=== PATIENT | female | born 1975 | race Caucasian/White ===

== ENCOUNTER 2016-07-21 10:05 | Emergency (ER) | payer OTHER ==
--- NOTE | 2016-07-21 12:01 | ED ORDER SUMMARY ---
..... Patient: ALE REDMOND OrderSheet [facility] VisitID: [id number] [address] [place] [address] 40y, F Registration Date/Time: 07/21/2016 ORDER SHEET Weight: 80.7 kg (stated) Allergies: Gabapentin, Vicodin GENERAL ORDERS: MEDICATION ORDERS: Amoxicillin PO 500 mg (NOW) (11:59 07/21/2016 Tiffany BURDICK) (12:13 Tiffanie Felix.Ebenezer) IV FLUIDS: ORDER SHEET NOTES: [Electronically signed by Dimas [place] R.N. (13:17 07/21/2016)] [Electronically signed by Barby Iraheta MD (19:25 07/23/2016)] [Electronically locked/signed by Dimas [place] R.N. (13:17 07/21/2016)]
--- NOTE | 2016-07-21 12:01 | ED CLINICAL REPORT ---
Clinical Report - Physicians/Mid Levels [facility] [address] [place] [address] 07/21/2016 10:07 Patient: ALE REDMOND Time Seen: 10:32. Arrived- By private vehicle. Historian- patient. HISTORY OF PRESENT ILLNESS Chief Complaint: DENTAL PAIN. This started yesterday and is still present. Pain described as moderate. No sore throat, mouth sores or nasal discharge or congestion. No swollen jaw or face or facial pain. She has had toothache, jaw pain and ear pain. Similar symptoms previously: Recent medical care: Not recently seen/assessed. REVIEW OF SYSTEMS No fever, eye discomfort, cough, difficulty breathing or chest pain. No nausea, diarrhea, abdominal pain, difficulty with urination or headache. No fainting episodes, joint pain, skin rash, enlarged lymph nodes or vomiting. All systems otherwise negative, except as recorded above. PAST HISTORY Problems: Acute Otalgia. Fibromyalgia. Migraine Headache. LNMP - Last Normal Menstrual Period. Dental Pain. Immunizations. Additional Surgeries: Appendectomy. Cholecystectomy. . Shoulder Surgery. Umbilical Hernia Repair. Medications: Zofran Oral, as needed. Amitriptyline HCl Oral 25 mg, at bedtime. Citalopram Hydrobromide Oral (Tablet 20 mg) 1 tablet, daily , last dose yesterday. Ibuprofen Oral 800 mg. Omeprazole Oral 20 mg, daily. Xanax Oral 0.25 mg, as needed, last dose took 2 about 1 week ago (for anxiety ). Allergies: Gabapentin. Vicodin. Definite Moderate(hives). SOCIAL HISTORY Smoker- current status unknown. No alcohol use or drug use. ADDITIONAL NOTES The nursing notes have been reviewed. PHYSICAL EXAM Vital Signs: 07/21/2016 10:21 BP: 126/78. HR: 102. RR: 16. O2 saturation: 100%. Temp: 98.3 F. Have been reviewed. Appearance: Alert. No acute distress. Head: Normal external inspection. Eyes: Pupils equal, round and reactive to light. Conjunctivae and eyelids normal. ENT: Dental decay and tenderness. Ears normal. Nose normal. Pharynx normal. Lips normal. Uvula midline. No trismus. Neck: Normal inspection. No adenopathy. Neck supple. Respiratory: No respiratory distress. Skin: Normal skin color. No rash. Normal skin turgor. Extremities: Extremities exhibit normal ROM. Neuro: (Grossly intact.). LABS, X-RAYS, AND EKG Pulse Oximetry: 07/21/2016 10:21 O2 saturation: 100%. (FIO2 - room air). Interpretation: normal. PROGRESS AND PROCEDURES Course of Care: PT was started on amoxicillin. Patient counseled in person regarding the patient's stable condition, diagnosis and need for follow-up. Concerns were addressed. Old medical records reviewed. Disposition: Discharged. Condition: stable. CLINICAL IMPRESSION Moderate dental pain. INSTRUCTIONS Drink plenty of fluids. Warnings: Further evaluation is necessary. GENERAL WARNINGS: Return or contact your physician immediately if your condition worsens or changes unexpectedly, if not improving as expected, or if other problems arise. Your Current Medications: CONTINUE TAKING THE FOLLOWING MEDICATIONS: Amitriptyline HCl Oral : 25 mg at bedtime. Citalopram Hydrobromide Oral : Tablet 20 mg, 1 tablet daily, Last: yesterday. Ibuprofen Oral : 800 mg. Omeprazole Oral : 20 mg daily. Xanax Oral : 0.25 mg, Last: took 2 about 1 week ago, prn, for anxiety. Zofran Oral : prn. Prescription Medications: Amoxicillin 500 mg tablets: take 1 orally every 8 hours for 10 days. No refills. Percocet 5 mg/325 mg: take 1-2 tablets orally every 4 hours as needed for pain. Dispense ten (10). No refill. Substitution is permissible. (Do not take more than 12 tablets of any Percocet/oxycodone in a 24-hour period.) Follow-up: Follow up with a dentist as scheduled. Understanding of the discharge instructions verbalized by patient. (Electronically signed by Barby Iraheta MD 07/23/2016 19:25)
--- NOTE | 2016-07-21 12:01 | ED NURSING NOTES ---
Clinical Report - Nurses [facility] [address] [place] [address] 07/21/2016 10:07 Patient: ALE REDMOND TRIAGE Triage time 10:22. Acuity: LEVEL 5. Chief Complaint: RIGHT LOWER TOOTHACHE and JAW PAIN. Alert. No acute distress. SEPSIS SCREEN: Sepsis Screen. Negative (no infection suspected/documented). GAL COMA SCORE: Gal Coma Scale: 15- eyes open spontaneously (4); best verbal response- oriented x 4 (5); best motor response- obeys commands (6). --10:26 Hannah Rutherford R.N. 10:21 07/21/16. BP: 126/78. HR: 102. RR: 16. O2 saturation: 100%. Temp: 98.3 F. Pain level now 8/10. --10:26 Hannah Rutherford R.N. Weight: 80.7 kg stated. Height/Length: 60 inches Per Patient. BMI: 34.7. --10:23 Hannah Rutherford R.N. Medications Amitriptyline HCl Oral 25 mg, at bedtime. Citalopram Hydrobromide Oral (Tablet 20 mg) 1 tablet, daily , last dose yesterday. Ibuprofen Oral 800 mg. Omeprazole Oral 20 mg, daily. Xanax Oral 0.25 mg, as needed, last dose took 2 about 1 week ago (for anxiety ). --10:25 Hannah Rutherford R.N. Zofran Oral, as needed. --10:25 Hannah Rutherford R.N. Allergies Gabapentin. Vicodin. Definite Moderate(hives) --10:25 Hannah Rutherford R.N. History Arrived by private vehicle. Historian: patient. Unaccompanied. Primary physician (Foster Boyd). This started yesterday. 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 (last dose around 0500 today.). PAST MEDICAL HX: Immunizations: up-to-date. SOCIAL HX: Smoker- current status unknown. No alcohol use or drug use. No infectious disease exposure. ABUSE ASSESSMENT: Abuse assessment: The patient was asked "Do you feel safe in your home?" and "Has anyone hurt you or threatened to hurt you?". No report of abuse. NUTRITIONAL RISK ASSESSMENT: The nutritional risk assessment revealed no deficiencies. FUNCTIONAL ASSESSMENT: Functional assessment: no impairments noted. LEARNING NEEDS ASSESSMENT: The learning needs assessment revealed no barriers. --10:26 Hannah Rutherford R.N. PROBLEMS: Pharyngitis. Acute Otalgia. Fibromyalgia. Chronic Headache. Headache. Migraine Headache. Contusion. Abdominal Muscle Strain. UTI - Urinary Tract Infection. Abdominal Pain. Dental Caries. --10:26 Hannah Rutherford R.N. ADDITIONAL SURGERIES: Appendectomy. Cholecystectomy. . Shoulder Surgery. Umbilical Hernia Repair. --10:26 Hannah Rutherford R.N. Interventions ID band on patient. Ambulatory. --10:26 Hannah Rutherford R.N. PHYSICAL ASSESSMENT Ambulatory to room. GENERAL / NEURO / PSYCH: Alert. Appears in no acute distress. RESPIRATORY: Respirations not labored. SKIN: Skin is warm and dry. --10:26 Hannah Rutherford R.N. NURSING PROGRESS NOTES Head of bed elevated. Two patient identifiers checked. Call light placed in reach. Side rails up x 2. Bed placed in lowest position. Brakes of bed on. Patient ready for evaluation- chart flagged. --10:26 Hannah Rutherford R.N. 12:13 07/21/2016 Amoxicillin PO 500 mg given. Allergies verified and confirmed 5 rights. --12:13 Dimas [place] R.N. DISPOSITION / DISCHARGE 12:15 07/21/16. Condition at departure: improved. The goals identified in the patient's plan of care were met. No learning barriers present. Discharge instructions provided and reviewed with the patient. Reviewed warnings. Reviewed medication(s). Treatments reviewed. Patient verbalized understanding. Written instructions provided in Latvian. The patient was discharged by the physician. She was discharged home. She left the Emergency Department ambulatory and via private vehicle. Patient driving. FALL RISK ASSESSMENT: Fall risk assessment completed. No fall risk identified. --12:15 Dimas [place] R.N. 12:15 03/29/17. BP: 132/77. HR: 82. RR: 14. O2 saturation: 98% on room air. Temp: 98.2 F (oral). Pain level now: 06/04. --12:15 Dimas [place] R.N. 12:15 07/21/16. Departure time: 12:15. --12:15 Dimas [place] R.N. Locked/Released at 07/21/2016 13:17 by Dimas [place] R.N.
--- NOTE | 2016-07-21 12:01 | ED NURSING NOTES ---
Clinical Report - Nurses [facility] [address] [place] [address] 07/21/2016 10:07 Patient: ALE REDMOND TRIAGE Triage time 10:22. Acuity: LEVEL 5. Chief Complaint: RIGHT LOWER TOOTHACHE and JAW PAIN. Alert. No acute distress. SEPSIS SCREEN: Sepsis Screen. Negative (no infection suspected/documented). GAL COMA SCORE: Gal Coma Scale: 15- eyes open spontaneously (4); best verbal response- oriented x 4 (5); best motor response- obeys commands (6). --10:26 Hannah Rutherford R.N. 10:21 07/21/16. BP: 126/78. HR: 102. RR: 16. O2 saturation: 100%. Temp: 98.3 F. Pain level now 8/10. --10:26 Hannah Rutherford R.N. Weight: 80.7 kg stated. Height/Length: 60 inches Per Patient. BMI: 34.7. --10:23 Hannah Rutherford R.N. Medications Amitriptyline HCl Oral 25 mg, at bedtime. Citalopram Hydrobromide Oral (Tablet 20 mg) 1 tablet, daily , last dose yesterday. Ibuprofen Oral 800 mg. Omeprazole Oral 20 mg, daily. Xanax Oral 0.25 mg, as needed, last dose took 2 about 1 week ago (for anxiety ). --10:25 Hannah Rutherford R.N. Zofran Oral, as needed. --10:25 Hannah Rutherford R.N. Allergies Gabapentin. Vicodin. Definite Moderate(hives) --10:25 Hannah Rutherford R.N. History Arrived by private vehicle. Historian: patient. Unaccompanied. Primary physician (Foster Boyd). This started yesterday. 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 (last dose around 0500 today.). PAST MEDICAL HX: Immunizations: up-to-date. SOCIAL HX: Smoker- current status unknown. No alcohol use or drug use. No infectious disease exposure. ABUSE ASSESSMENT: Abuse assessment: The patient was asked "Do you feel safe in your home?" and "Has anyone hurt you or threatened to hurt you?". No report of abuse. NUTRITIONAL RISK ASSESSMENT: The nutritional risk assessment revealed no deficiencies. FUNCTIONAL ASSESSMENT: Functional assessment: no impairments noted. LEARNING NEEDS ASSESSMENT: The learning needs assessment revealed no barriers. --10:26 Hannah Rutherford R.N. PROBLEMS: Pharyngitis. Acute Otalgia. Fibromyalgia. Chronic Headache. Headache. Migraine Headache. Contusion. Abdominal Muscle Strain. UTI - Urinary Tract Infection. Abdominal Pain. Dental Caries. --10:26 Hannah Rutherford R.N. ADDITIONAL SURGERIES: Appendectomy. Cholecystectomy. . Shoulder Surgery. Umbilical Hernia Repair. --10:26 Hannah Rutherford R.N. Interventions ID band on patient. Ambulatory. --10:26 Hannah Rutherford R.N. PHYSICAL ASSESSMENT Ambulatory to room. GENERAL / NEURO / PSYCH: Alert. Appears in no acute distress. RESPIRATORY: Respirations not labored. SKIN: Skin is warm and dry. --10:26 Hannah Rutherford R.N. NURSING PROGRESS NOTES Head of bed elevated. Two patient identifiers checked. Call light placed in reach. Side rails up x 2. Bed placed in lowest position. Brakes of bed on. Patient ready for evaluation- chart flagged. --10:26 Hannah Rutherford R.N. 12:13 07/21/2016 Amoxicillin PO 500 mg given. Allergies verified and confirmed 5 rights. --12:13 Dimas [place] R.N. DISPOSITION / DISCHARGE 12:15 07/21/16. Condition at departure: improved. The goals identified in the patient's plan of care were met. No learning barriers present. Discharge instructions provided and reviewed with the patient. Reviewed warnings. Reviewed medication(s). Treatments reviewed. Patient verbalized understanding. Written instructions provided in Sami. The patient was discharged by the physician. She was discharged home. She left the Emergency Department ambulatory and via private vehicle. Patient driving. FALL RISK ASSESSMENT: Fall risk assessment completed. No fall risk identified. --12:15 Dimas [place] R.N. 12:15 03/29/17. BP: 132/77. HR: 82. RR: 14. O2 saturation: 98% on room air. Temp: 98.2 F (oral). Pain level now: 06/04. --12:15 Dimas [place] R.N. 12:15 07/21/16. Departure time: 12:15. --12:15 Dimas [place] R.N. Locked/Released at 07/21/2016 13:17 by Dimas [place] R.N.
--- NOTE | 2016-07-21 12:01 | ED ORDER SUMMARY ---
..... Patient: ALE REDMOND OrderSheet [facility] VisitID: [id number] [address] [place] [address] 40y, F Registration Date/Time: 07/21/2016 ORDER SHEET Weight: 80.7 kg (stated) Allergies: Gabapentin, Vicodin GENERAL ORDERS: MEDICATION ORDERS: Amoxicillin PO 500 mg (NOW) (11:59 07/21/2016 Tiffany BURDICK) (12:13 Tiffanie Felix.Ebenezer) IV FLUIDS: ORDER SHEET NOTES: [Electronically signed by Dimas [place] R.N. (13:17 07/21/2016)] [Electronically signed by Barby Iraheta MD (19:25 07/23/2016)] [Electronically locked/signed by Dimas [place] R.N. (13:17 07/21/2016)]
--- NOTE | 2016-07-23 19:25 | ED MAR SUMMARY ---
..... Medication Administration Record [facility] [address] [place] [address] Patient: ALE REDMOND Visit ID: [id number] 40y, F Weight: 80.7 kg Height/Length: 60 in BMI: 34.7 ALLERGIES: Gabapentin, Vicodin Given 12:13 07/21/2016 Dimas [place] R.N. Medication Administered: AMOXICILLIN [PO], Dose: 500 mg PO. Medication Ordered: Amoxicillin PO 500 mg (NOW).
--- NOTE | 2016-07-23 19:25 | ED DISCHARGE INSTRUCTIONS ---
Patient: ALE REDMOND General Instructions [facility] VisitID: [id number] [place] [address] 40y, F Registration Date/Time: 07/21/2016 Moderate dental pain. INSTRUCTIONS Drink plenty of fluids. Warnings: Further evaluation is necessary. GENERAL WARNINGS: Return or contact your physician immediately if your condition worsens or changes unexpectedly, if not improving as expected, or if other problems arise. Your Current Medications: CONTINUE TAKING THE FOLLOWING MEDICATIONS: Amitriptyline HCl Oral : 25 mg at bedtime. Citalopram Hydrobromide Oral : Tablet 20 mg, 1 tablet daily, Last: yesterday. Ibuprofen Oral : 800 mg. Omeprazole Oral : 20 mg daily. Xanax Oral : 0.25 mg, Last: took 2 about 1 week ago, prn, for anxiety. Zofran Oral : prn. Prescription Medications: Amoxicillin 500 mg tablets: take 1 orally every 8 hours for 10 days. No refills. Percocet 5 mg/325 mg: take 1-2 tablets orally every 4 hours as needed for pain. Dispense ten (10). No refill. Substitution is permissible. (Do not take more than 12 tablets of any Percocet/oxycodone in a 24-hour period.) Follow-up: Follow up with a dentist as scheduled. Understanding of the discharge instructions verbalized by patient. ADDITIONAL INFORMATION Dental Pain A crack or cavity in the tooth, which exposes the sensitive inner area of the tooth can cause tooth pain. An infection in the gum or the root of the tooth can cause pain and swelling. The pain is often made worse by drinking hot or cold fluids, or biting on hard foods. Pain may spread from the tooth to the ear or jaw on the same side. Home Care: Avoid hot and cold foods and liquids since your tooth may be sensitive to temperature changes. If your tooth is chipped or cracked, or if there is a large open cavity, apply OIL OF CLOVES (available ylrl-rko-nyponfn in drug stores) directly to the tooth to reduce pain. Some pharmacies carry an tfov-zel-cllmlab "toothache kit." This contains a paste, which can be applied over the exposed tooth to decrease sensitivity. A cold pack on your jaw over the sore area may help reduce pain. You may use acetaminophen (Tylenol) or ibuprofen (Motrin, Advil) to control pain, unless another medicine was prescribed. [ NOTE: If you have chronic liver or kidney disease or ever had a stomach ulcer or GI bleeding, talk with your doctor before using these medicines.] If you have signs of an infection, an antibiotic will be given. Take it as directed. Follow-Up as directed with a dentist. Your pain may go away with the treatment given. However, only a dentist can fully evaluate and treat the cause and prevent the pain from coming back again. TOOTHACHE IS A SIGN OF DISEASE IN YOUR TOOTH AND SHOULD BE EXAMINED AND TREATED BY A DENTIST. Get Prompt Medical Attention if any of the following occur: Your face becomes swollen or red Pain worsens or spreads to the neck Fever over 100.4 F (38.0 C) Unusual drowsiness; headache or stiff neck; weakness or fainting Pus drains from the tooth Difficulty swallowing or breathing You have been given the following additional information: Dental Pain (Electronically signed by Barby Iraheta MD 07/23/2016 19:25)
--- NOTE | 2016-07-23 19:25 | ED MED RECONCILIATION SUMMARY ---
Patient: ALE REDMOND Medication Reconciliation Report [facility] VisitID: [id number] [address] [place] [address] 40y, F Registration Date/Time: 07/21/2016 Weight: 80.7 kg Height/Length: 60 in. BMI: 34.7 ALLERGIES: Gabapentin, Vicodin The patient's Home Medications are listed below: CONTINUE TAKING THE FOLLOWING MEDICATIONS: Amitriptyline HCl Oral 25 mg, at bedtime Citalopram Hydrobromide Oral (20 mg) 1 tablet, daily , last dose: yesterday Ibuprofen Oral 800 mg Omeprazole Oral 20 mg, daily Xanax Oral 0.25 mg, last dose: took 2 about 1 week ago , for anxiety Zofran Oral The source(s) of the original Home Medication information: Not obtained. The following Medications were given to the patient in the Emergency Department: Amoxicillin [PO] PO 500 mg, administered: 07/21/2016 12:13:00 PM The following Medications were prescribed to the patient: Amoxicillin 500 mg tablets: take 1 orally every 8 hours for 10 days. No refills. -- Barby Iraheta MD Percocet 5 mg/325 mg: take 1-2 tablets orally every 4 hours as needed for pain. Dispense ten (10). No refill. Substitution is permissible.(Do not take more than 12 tablets of any Percocet/oxycodone in a 24-hour period.) -- Barby Iraheta MD
--- NOTE | 2016-07-23 19:25 | ED MAR SUMMARY ---
..... Medication Administration Record [facility] [address] [place] [address] Patient: ALE REDMOND Visit ID: [id number] 40y, F Weight: 80.7 kg Height/Length: 60 in BMI: 34.7 ALLERGIES: Gabapentin, Vicodin Given 12:13 07/21/2016 Dimas [place] R.N. Medication Administered: AMOXICILLIN [PO], Dose: 500 mg PO. Medication Ordered: Amoxicillin PO 500 mg (NOW).
--- NOTE | 2016-07-23 19:25 | ED MED RECONCILIATION SUMMARY ---
Patient: ALE REDMOND Medication Reconciliation Report [facility] VisitID: [id number] [address] [place] [address] 40y, F Registration Date/Time: 07/21/2016 Weight: 80.7 kg Height/Length: 60 in. BMI: 34.7 ALLERGIES: Gabapentin, Vicodin The patient's Home Medications are listed below: CONTINUE TAKING THE FOLLOWING MEDICATIONS: Amitriptyline HCl Oral 25 mg, at bedtime Citalopram Hydrobromide Oral (20 mg) 1 tablet, daily , last dose: yesterday Ibuprofen Oral 800 mg Omeprazole Oral 20 mg, daily Xanax Oral 0.25 mg, last dose: took 2 about 1 week ago , for anxiety Zofran Oral The source(s) of the original Home Medication information: Not obtained. The following Medications were given to the patient in the Emergency Department: Amoxicillin [PO] PO 500 mg, administered: 07/21/2016 12:13:00 PM The following Medications were prescribed to the patient: Amoxicillin 500 mg tablets: take 1 orally every 8 hours for 10 days. No refills. -- Barby Iraheta MD Percocet 5 mg/325 mg: take 1-2 tablets orally every 4 hours as needed for pain. Dispense ten (10). No refill. Substitution is permissible.(Do not take more than 12 tablets of any Percocet/oxycodone in a 24-hour period.) -- Barby Iraheta MD
--- NOTE | 2016-07-23 19:25 | ED DISCHARGE INSTRUCTIONS ---
Patient: ALE REDMOND General Instructions [facility] VisitID: [id number] [place] [address] 40y, F Registration Date/Time: 07/21/2016 Moderate dental pain. INSTRUCTIONS Drink plenty of fluids. Warnings: Further evaluation is necessary. GENERAL WARNINGS: Return or contact your physician immediately if your condition worsens or changes unexpectedly, if not improving as expected, or if other problems arise. Your Current Medications: CONTINUE TAKING THE FOLLOWING MEDICATIONS: Amitriptyline HCl Oral : 25 mg at bedtime. Citalopram Hydrobromide Oral : Tablet 20 mg, 1 tablet daily, Last: yesterday. Ibuprofen Oral : 800 mg. Omeprazole Oral : 20 mg daily. Xanax Oral : 0.25 mg, Last: took 2 about 1 week ago, prn, for anxiety. Zofran Oral : prn. Prescription Medications: Amoxicillin 500 mg tablets: take 1 orally every 8 hours for 10 days. No refills. Percocet 5 mg/325 mg: take 1-2 tablets orally every 4 hours as needed for pain. Dispense ten (10). No refill. Substitution is permissible. (Do not take more than 12 tablets of any Percocet/oxycodone in a 24-hour period.) Follow-up: Follow up with a dentist as scheduled. Understanding of the discharge instructions verbalized by patient. ADDITIONAL INFORMATION Dental Pain A crack or cavity in the tooth, which exposes the sensitive inner area of the tooth can cause tooth pain. An infection in the gum or the root of the tooth can cause pain and swelling. The pain is often made worse by drinking hot or cold fluids, or biting on hard foods. Pain may spread from the tooth to the ear or jaw on the same side. Home Care: Avoid hot and cold foods and liquids since your tooth may be sensitive to temperature changes. If your tooth is chipped or cracked, or if there is a large open cavity, apply OIL OF CLOVES (available vtaa-wrh-gypfbuh in drug stores) directly to the tooth to reduce pain. Some pharmacies carry an sbbw-voc-gsahsyl "toothache kit." This contains a paste, which can be applied over the exposed tooth to decrease sensitivity. A cold pack on your jaw over the sore area may help reduce pain. You may use acetaminophen (Tylenol) or ibuprofen (Motrin, Advil) to control pain, unless another medicine was prescribed. [ NOTE: If you have chronic liver or kidney disease or ever had a stomach ulcer or GI bleeding, talk with your doctor before using these medicines.] If you have signs of an infection, an antibiotic will be given. Take it as directed. Follow-Up as directed with a dentist. Your pain may go away with the treatment given. However, only a dentist can fully evaluate and treat the cause and prevent the pain from coming back again. TOOTHACHE IS A SIGN OF DISEASE IN YOUR TOOTH AND SHOULD BE EXAMINED AND TREATED BY A DENTIST. Get Prompt Medical Attention if any of the following occur: Your face becomes swollen or red Pain worsens or spreads to the neck Fever over 100.4 F (38.0 C) Unusual drowsiness; headache or stiff neck; weakness or fainting Pus drains from the tooth Difficulty swallowing or breathing You have been given the following additional information: Dental Pain (Electronically signed by Barby Iraheta MD 07/23/2016 19:25)
== END 2016-07-21 12:15 | disposition home or self-care (01) ==
LOC: ED SRH 10:05
DX: K08.89 Other specified disorders of teeth and supporting structures (principal); Z79.899 Other long term (current) drug therapy

== ENCOUNTER 2016-10-25 16:05 | Emergency (ER) | payer OTHER ==
--- NOTE | 2016-10-25 17:22 | ED NURSING NOTES ---
Clinical Report - Nurses [facility] [address] [place] [place] [address] 10/25/2016 16:05 [id number] TRI[facility] Triage time 16:33 Oct 25 2016. Acuity: LEVEL 4. Chief Complaint: MIGRAINE HEADACHE. 16:34 10/25/16. 16:34 10/25/16. Alert. SEPSIS SCREEN: Sepsis Screen. Negative (no infection suspected/documented). GAL COMA SCORE: Gal Coma Scale: 15- eyes open spontaneously (4); best verbal response- oriented x 4 (5); best motor response- obeys commands (6). --16:39 Dimas Jackson R.N. 16:33 10/25/16. BP: 128/85. HR: 87. RR: 18. O2 saturation: 96%. Temp: 97.6 F (oral). Pain level now: 01/02. --16:39 Dimas Jackson R.N. Weight: 75.7 kg stated. Height/Length: 60 inches Per Patient. BMI: 32.6. --16:34 Dimas Jackson R.N. Medications Amitriptyline HCl Oral 25 mg, at bedtime. Citalopram Hydrobromide Oral (Tablet 20 mg) 1 tablet, daily . Ibuprofen Oral 800 mg. Omeprazole Oral 20 mg, daily. Xanax Oral 0.25 mg, as needed, last dose ago (for anxiety ). Zofran Oral, as needed. --16:36 Dimas Jackson R.N. Naratriptan HCl Oral (Tablet 2.5 mg) 1 tablet, as needed. --16:37 Dimas Jackson R.N. Medication/allergy information source: the patient. --16:39 Dimas Jackson R.N. Allergies Gabapentin. Vicodin. Definite Moderate(hives) --16:36 Dimas Jackson R.N. History Arrived by private vehicle. Historian: patient. Primary physician (). 16:34 10/25/16. This started last night. 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 PAST MEDICAL HX: Immunizations: up-to-date. Last normal menstrual period- Ended 2 days ago. SOCIAL HX: Never smoker. No alcohol use or drug use. No recent travel. No infectious disease exposure. No known contact with a sick individual. ABUSE ASSESSMENT: No report of abuse. FALL RISK ASSESSMENT: Fall risk assessment completed. No fall risk identified. NUTRITIONAL RISK ASSESSMENT: The nutritional risk assessment revealed no deficiencies. FUNCTIONAL ASSESSMENT: Functional assessment: no impairments noted. LEARNING NEEDS ASSESSMENT: The learning needs assessment revealed no barriers. SKIN INTEGRITY ASSESSMENT: Skin integrity risk assessment completed. No skin integrity risk identified. --16:39 Dimas Jackson R.N. PROBLEMS: Pharyngitis. Acute Otalgia. Fibromyalgia. Migraine Headache. Contusion. Abdominal Muscle Strain. UTI - Urinary Tract Infection. Abdominal Pain. Dental Caries. Dental Pain. --16:38 Dimas Jackson R.N. ADDITIONAL SURGERIES: Appendectomy. Cholecystectomy. . Shoulder Surgery. Umbilical Hernia Repair. --16:38 Dimas Jackson R.N. Assessment 16:34 10/25/16. --16:39 Dimas Jackson R.N. Interventions 16:34 10/25/16. 16:34 10/25/16. ID and allergy band on patient. To treatment room. --16:39 Dimas Jackson R.N. PHYSICAL ASSESSMENT 16:39 10/25/16. Ambulatory to room. GENERAL / NEURO / PSYCH: Alert. Oriented X 4. Appears in pain. Speech within normal limits. RESPIRATORY: Respirations not labored. CVS: Capillary refill less than 2 seconds. SKIN: Skin is warm and dry. --16:39 Dimas Jackson R.N. NURSING PROGRESS NOTES 16:39 10/25/16. The plan of care for this patient has been created. Head of bed elevated. Reassurance given. Lights dimmed. Two patient identifiers checked. Call light placed in reach. Side rails up x 2. Bed placed in lowest position. Brakes of bed on. --16:39 Dimas Jackson R.N. 16:39 10/25/16. Patient ready for evaluation- chart flagged and notification provided. --16:39 Dimas Jackson R.N. 17:33 10/25/2016 Toradol (Ketorolac Tromethamine) IM 60 mg given. Given in the right ventral gluteus. Allergies verified and confirmed 5 rights. --17:33 Dimas Jackson R.N. 17:33 10/25/2016 Benadryl (DiphenhydrAMINE HCl) IM 50 mg given. Given in the right ventral gluteus. Confirmed 5 rights and sedative warning given to the patient and patient's family. --17:33 Dimas Jackson R.N. 17:33 10/25/2016 Reglan (Metoclopramide HCl) IM 10 mg given. Given in the left ventral gluteus. Allergies verified and confirmed 5 rights. --17:33 Dimas Jackson R.N. DISPOSITION / DISCHARGE 17:37 10/25/16. Condition at departure: improved. The goals identified in the patient's plan of care were met. No learning barriers present. Discharge instructions provided and reviewed with the patient. Reviewed warnings. Reviewed medication(s). Treatments reviewed. Patient verbalized understanding. Written instructions provided in Syriac. The patient was discharged by the nurse practitioner. She was discharged home and accompanied by family. She left the Emergency Department ambulatory and via private vehicle. Family member driving. FALL RISK ASSESSMENT: Fall risk assessment completed. No fall risk identified. --17:39 Dimas Jackson R.N. 17:36 10/25/16. BP: 119/72. HR: 80. RR: 18. O2 saturation: 100% on room air. Temp: 98.2 F (oral). Pain level now: 08/02. --17:39 Dimas Jackson R.N. 17:39 10/25/16. Departure time: 17:39 Oct 25 2016. --17:39 Dimas Jackson R.N. Locked/Released at 10/25/2016 17:41 by Dimas Jackson R.N.
--- NOTE | 2016-10-25 17:22 | ED ORDER SUMMARY ---
..... Patient: ALE REDMOND OrderSheet [facility] VisitID: [id number] [address] [place] [address] 41y, F Registration Date/Time: 10/25/2016 ORDER SHEET Weight: 75.7 kg (stated) Allergies: Gabapentin, Vicodin GENERAL ORDERS: MEDICATION ORDERS: Toradol IM 60 mg (NOW) (17:17 10/25/2016 HBivens A.R.N.P.) (Ack 17:27 JBoardley R.N.) (17:33 JBoardley R.N.) Benadryl IM 50 mg (NOW) (17:18 10/25/2016 HBivens A.R.N.P.) (Ack 17:27 JBoardley R.N.) (17:33 JBoardley R.N.) - (Reglan 10mg im stat lease) (17:18 10/25/2016 HBivens A.R.N.P.) (Ack 17:27 JBoardley R.N.) (17:33 JBoardley R.N.) IV FLUIDS: ORDER SHEET NOTES: [Electronically signed by Dimas Jackson R.N. (17:41 10/25/2016)] [Electronically signed by Elva King.R.N.P. (18:20 10/25/2016)] [Electronically locked/signed by Dimas Jackson R.N. (17:41 10/25/2016)]
--- NOTE | 2016-10-25 17:22 | ED CLINICAL REPORT ---
Clinical Report - Physicians/Mid Levels [facility] [address] [place] [address] 10/25/2016 16:05 Patient: ALE REDMOND Time Seen: 17:08; initial patient contact, initial documentation, patient care assumed. Arrived- By private vehicle. Historian- patient. HISTORY OF PRESENT ILLNESS Is still present. Chief Complaint: HEADACHE and MIGRAINE HEADACHE. This started last night. It is described as similar to previous headaches and "pain". Described as a global headache. Located in the frontal, left hemicranial, left parietal and left temporal region and region of the left eye. Located in the facial region. No neck pain. At its maximum, severity described as severe. When seen in the E.D., severity described as severe. Modifying factors: worsened by bright light; relieved by nothing. The patient has had photophobia, nausea and vomiting. The vomiting has occurred only once. No preceding symptoms, blurred vision, numbness or weakness. No recent travel. Similar symptoms previously: None. Recent medical care: Not recently seen/assessed. REVIEW OF SYSTEMS No fever, sinus pressure, ear pain, sore throat or head injury. No chest pain, difficulty breathing or cough. All systems otherwise negative, except as recorded above. PAST HISTORY See nurses notes. PROBLEMS: Pharyngitis. Acute Otalgia. Fibromyalgia. Migraine Headache. Contusion. Abdominal Muscle Strain. UTI - Urinary Tract Infection. Abdominal Pain. Dental Caries. Dental Pain. --16:38 Dimas Jackson R.N. ADDITIONAL SURGERIES: Appendectomy. Cholecystectomy. . Shoulder Surgery. Umbilical Hernia Repair. --16:38 Dimas Jackson R.N. SOCIAL HISTORY Never smoker. No alcohol use or drug use. No recent travel. Is a local resident. FAMILY HISTORY Negative. ADDITIONAL NOTES The nursing notes have been reviewed with agreement regarding the chief complaint, HPI, ROS, PMH and patient medications and allergies. PHYSICAL EXAM Vital Signs: 10/25/2016 16:33 BP: 128/85. HR: 87. RR: 18. O2 saturation: 96%. Temp: 97.6 F. Pain level now: 01/02. Have been reviewed as normal and appear to be correct. Appearance: Alert. No acute distress. Eyes: Pupils equal, round and reactive to light. Eyes normal inspection. ENT: Ears normal. Nose normal. Pharynx normal. Neck: Normal inspection. Neck supple. CVS: Normal heart rate and rhythm. Heart sounds normal. Pulses normal. Respiratory: No respiratory distress. Breath sounds normal. Back: Normal inspection. Skin: Skin warm and dry. Normal skin color. No rash. Normal skin turgor. Extremities: Extremities exhibit normal ROM. No lower extremity edema. Neuro: Oriented X 3. Alert. Mood/affect normal. Speech normal. Cranial nerves normal (as tested). No cerebellar findings. No motor deficit. No sensory deficit. PROGRESS AND PROCEDURES Course of Care: 17:25 10/25/16. pt has mallory for frequent large quantity of narcs, last rx 10/05 #75 oxycodone 5mg and #60 tylenol #4 with codiene, see report for full details. Patient counseled in person regarding the patient's stable condition and diagnosis. Differential Diagnosis: I considered migraine, cluster headache, subarachnoid hemorrhage, intracranial bleed, vascular malformation, cerebral aneurysm, vascular dissection, vasculitis, temporal arteritis, sinusitis, influenza, viral syndrome, carbon monoxide exposure, analgesic abuse, hypoglycemia and trigeminal neuralgia as a possible cause of headache in this patient. This is a partial list of diagnoses considered. Above considerations are based on history and physical exam. Differential diagnosis was discussed with patient. Disposition: Discharged home in good and improved condition (17:22). Condition: good and stable. CLINICAL IMPRESSION Acute migraine headache without aura- refractory to treatment. No status migrainosus. INSTRUCTIONS Warnings: GENERAL WARNINGS: Return or contact your physician immediately if your condition worsens or changes unexpectedly, if not improving as expected, or if other problems arise. SPECIFICALLY, return if you develop fever, vomiting, numbness, weakness, difficulty thinking, visual disturbances, fainting or extreme fatigue. Prescription Medications: Zofran 4 mg: Take 1 orally every six hours as needed for nausea/vomiting. Dispense ten (10). No refills. Substitution is permissible. Follow-up: Follow up with your doctor in about three days even if well. Call for an appointment. Summary of care provided to patient. Understanding of the discharge instructions verbalized by patient. (Electronically signed by Elva King A.R.N.P. 10/25/2016 18:20)
--- NOTE | 2016-10-25 17:22 | ED NURSING NOTES ---
Clinical Report - Nurses [facility] [address] [place] [address] 10/25/2016 16:05 [id number] Triage time 16:33 Oct 25 2016. Acuity: LEVEL 4. Chief Complaint: MIGRAINE HEADACHE. 16:34 10/25/16. 16:34 10/25/16. Alert. SEPSIS SCREEN: Sepsis Screen. Negative (no infection suspected/documented). GAL COMA SCORE: Gal Coma Scale: 15- eyes open spontaneously (4); best verbal response- oriented x 4 (5); best motor response- obeys commands (6). --16:39 Dimas Jackson R.N. 16:33 10/25/16. BP: 128/85. HR: 87. RR: 18. O2 saturation: 96%. Temp: 97.6 F (oral). Pain level now: 01/02. --16:39 Dimas Jackson R.N. Weight: 75.7 kg stated. Height/Length: 60 inches Per Patient. BMI: 32.6. --16:34 Dimas Jackson R.N. Medications Amitriptyline HCl Oral 25 mg, at bedtime. Citalopram Hydrobromide Oral (Tablet 20 mg) 1 tablet, daily . Ibuprofen Oral 800 mg. Omeprazole Oral 20 mg, daily. Xanax Oral 0.25 mg, as needed, last dose ago (for anxiety ). Zofran Oral, as needed. --16:36 Dimas Jackson R.N. Naratriptan HCl Oral (Tablet 2.5 mg) 1 tablet, as needed. --16:37 Dimas Jackson R.N. Medication/allergy information source: the patient. --16:39 Dimas Jackson R.N. Allergies Gabapentin. Vicodin. Definite Moderate(hives) --16:36 Dimas Jackson R.N. History Arrived by private vehicle. Historian: patient. Primary physician (). 16:34 10/25/16. This started last night. 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 PAST MEDICAL HX: Immunizations: up-to-date. Last normal menstrual period- Ended 2 days ago. SOCIAL HX: Never smoker. No alcohol use or drug use. No recent travel. No infectious disease exposure. No known contact with a sick individual. ABUSE ASSESSMENT: No report of abuse. FALL RISK ASSESSMENT: Fall risk assessment completed. No fall risk identified. NUTRITIONAL RISK ASSESSMENT: The nutritional risk assessment revealed no deficiencies. FUNCTIONAL ASSESSMENT: Functional assessment: no impairments noted. LEARNING NEEDS ASSESSMENT: The learning needs assessment revealed no barriers. SKIN INTEGRITY ASSESSMENT: Skin integrity risk assessment completed. No skin integrity risk identified. --16:39 Dimas Jackson R.N. PROBLEMS: Pharyngitis. Acute Otalgia. Fibromyalgia. Migraine Headache. Contusion. Abdominal Muscle Strain. UTI - Urinary Tract Infection. Abdominal Pain. Dental Caries. Dental Pain. --16:38 Dimas Jackson R.N. ADDITIONAL SURGERIES: Appendectomy. Cholecystectomy. . Shoulder Surgery. Umbilical Hernia Repair. --16:38 Dimas Jackson R.N. Assessment 16:34 10/25/16. --16:39 Dimas Jackson R.N. Interventions 16:34 10/25/16. 16:34 10/25/16. ID and allergy band on patient. To treatment room. --16:39 Dimas Jackson R.N. PHYSICAL ASSESSMENT 16:39 10/25/16. Ambulatory to room. GENERAL / NEURO / PSYCH: Alert. Oriented X 4. Appears in pain. Speech within normal limits. RESPIRATORY: Respirations not labored. CVS: Capillary refill less than 2 seconds. SKIN: Skin is warm and dry. --16:39 Dimas Jackson R.N. NURSING PROGRESS NOTES 16:39 10/25/16. The plan of care for this patient has been created. Head of bed elevated. Reassurance given. Lights dimmed. Two patient identifiers checked. Call light placed in reach. Side rails up x 2. Bed placed in lowest position. Brakes of bed on. --16:39 Dimas Jackson R.N. 16:39 10/25/16. Patient ready for evaluation- chart flagged and notification provided. --16:39 Dimas Jackson R.N. 17:33 10/25/2016 Toradol (Ketorolac Tromethamine) IM 60 mg given. Given in the right ventral gluteus. Allergies verified and confirmed 5 rights. --17:33 Dimas Jackson R.N. 17:33 10/25/2016 Benadryl (DiphenhydrAMINE HCl) IM 50 mg given. Given in the right ventral gluteus. Confirmed 5 rights and sedative warning given to the patient and patient's family. --17:33 Dimas Jackson R.N. 17:33 10/25/2016 Reglan (Metoclopramide HCl) IM 10 mg given. Given in the left ventral gluteus. Allergies verified and confirmed 5 rights. --17:33 Dimas Jackson R.N. DISPOSITION / DISCHARGE 17:37 10/25/16. Condition at departure: improved. The goals identified in the patient's plan of care were met. No learning barriers present. Discharge instructions provided and reviewed with the patient. Reviewed warnings. Reviewed medication(s). Treatments reviewed. Patient verbalized understanding. Written instructions provided in Polish. The patient was discharged by the nurse practitioner. She was discharged home and accompanied by family. She left the Emergency Department ambulatory and via private vehicle. Family member driving. FALL RISK ASSESSMENT: Fall risk assessment completed. No fall risk identified. --17:39 Dimas Jackson R.N. 17:36 10/25/16. BP: 119/72. HR: 80. RR: 18. O2 saturation: 100% on room air. Temp: 98.2 F (oral). Pain level now: 08/02. --17:39 Dimas Jackson R.N. 17:39 10/25/16. Departure time: 17:39 Oct 25 2016. --17:39 Dimas Jackson R.N. Locked/Released at 10/25/2016 17:41 by Dimas Jackson R.N.
--- NOTE | 2016-10-25 17:22 | ED ORDER SUMMARY ---
..... Patient: ALE REDMOND OrderSheet [facility] VisitID: [id number] [address] [place] [address] 41y, F Registration Date/Time: 10/25/2016 ORDER SHEET Weight: 75.7 kg (stated) Allergies: Gabapentin, Vicodin GENERAL ORDERS: MEDICATION ORDERS: Toradol IM 60 mg (NOW) (17:17 10/25/2016 HBivens A.R.N.P.) (Ack 17:27 JBoardley R.N.) (17:33 JBoardley R.N.) Benadryl IM 50 mg (NOW) (17:18 10/25/2016 HBivens A.R.N.P.) (Ack 17:27 JBoardley R.N.) (17:33 JBoardley R.N.) - (Reglan 10mg im stat lease) (17:18 10/25/2016 HBivens A.R.N.P.) (Ack 17:27 JBoardley R.N.) (17:33 JBoardley R.N.) IV FLUIDS: ORDER SHEET NOTES: [Electronically signed by Dimas Jackson R.N. (17:41 10/25/2016)] [Electronically signed by Elva King.R.N.P. (18:20 10/25/2016)] [Electronically locked/signed by Dimas Jackson R.N. (17:41 10/25/2016)]
--- NOTE | 2016-10-25 18:20 | ED MAR SUMMARY ---
..... Medication Administration Record [facility] [address] [place] [address] Patient: ALE REDMNOD Visit ID: [id number] 41y, F Weight: 75.7 kg Height/Length: 60 in BMI: 32.6 ALLERGIES: Gabapentin, Vicodin Given 17:10/25/2016 Dimas Jackson RElia Medication Administered: TORADOL [IM] (KETOROLAC TROMETHAMINE), Dose: 60 mg IM. Medication Ordered: Toradol IM 60 mg (NOW). Given 17:10/25/2016 Dimas Jackson R.NJose Ramon Medication Administered: BENADRYL [IM] (DIPHENHYDRAMINE HCL), Dose: 50 mg IM. Medication Ordered: Benadryl IM 50 mg (NOW). Given 17:10/25/2016 Dimas Jackson RJose RamonNJose Ramon Medication Administered: REGLAN [IM] (METOCLOPRAMIDE HCL), Dose: 10 mg IM. Medication Ordered: - (Reglan 10mg im stat lease).
--- NOTE | 2016-10-25 18:20 | ED DISCHARGE INSTRUCTIONS ---
Patient: ALE REDMOND General Instructions [facility] VisitID: [id number] [place] [address] 41y, F Registration Date/Time: 10/25/2016 Acute migraine headache without aura- refractory to treatment. No status migrainosus. INSTRUCTIONS Warnings: GENERAL WARNINGS: Return or contact your physician immediately if your condition worsens or changes unexpectedly, if not improving as expected, or if other problems arise. SPECIFICALLY, return if you develop fever, vomiting, numbness, weakness, difficulty thinking, visual disturbances, fainting or extreme fatigue. Prescription Medications: Zofran 4 mg: Take 1 orally every six hours as needed for nausea/vomiting. Dispense ten (10). No refills. Substitution is permissible. Follow-up: Follow up with your doctor in about three days even if well. Call for an appointment. Summary of care provided to patient. Understanding of the discharge instructions verbalized by patient. ADDITIONAL INFORMATION Migraine Headache Migraine headaches are related to changes in blood flow to the brain. This causes throbbing or constant pain on one or both sides of the head. The pain may last from a few hours to several days. There is usually nausea, vomiting, sensitivity to light and sound, and blurred vision. A migraine attack may be triggered by emotional stress, hormone changes during the menstrual cycle, oral contraceptives, alcohol use, certain foods containing tyramine, eye strain, weather changes, missing meals, or too little or too much sleep. Home Care For This Headache: 1) If you were given pain medicine for this headache, do not drive yourself home . Arrange for a ride, instead. When you get home, try to sleep. You should feel much better when you wake up. 2) Migraine headaches may improve with an ice pack on the forehead or at the base of the skull. Heat to the back of your neck may relieve any neck spasm. 3) Drink only clear liquids or eat a very light diet to avoid nausea/vomiting until symptoms improve. Preventing Future Headaches: 1) Pay attention to those factors that seem to trigger your headache. Try to avoid them when you can. If you have frequent headaches, it is useful to keep a diary of what you were doing, feeling or eating in the hours before each attack. Show this to your doctor to help find the cause of your headaches. a) If you feel that stress is a factor in your headaches, look at the sources of stress in your life. Find ways to release the build-up of those stresses by using regular exercise, relaxation methods (yoga, meditation), bio-feedback or simply taking time-out for yourself. For more information about this, consult your doctor or go to a local bookstore and review books and tapes on this subject. b) Tyramine is a substance present in the following foods : chocolate, yogurt, all cheeses except cottage cheese and cream cheese. smoked or pickled fish and meat (including chacon, caviar, bologna, pepperoni, salami), liver, avocados, bananas, figs, raisins, and red wine. Be aware that these foods may trigger a migraine in some persons. Try taking these foods out of your diet for 1-2 months to see if this reduces headache frequency. Treating Future Attacks: 1) At the first sign of a headache, take time out if possible. Find a quiet, dark, comfortable place to sit or lie down. Let yourself relax or sleep. 2) An ice pack on the forehead or area of greatest pain may help. If you are having muscle spasm and tightness of the neck, a heating pad and massage to this area may be helpful. 3) If you have been prescribed a medicine to stop a migraine headache, use this at the very first warning sign of the headache (aura or initial pain) for best results. Follow Up with your doctor if the headache is not better within the next 24 hours. If you have frequent headaches you should discuss a treatment plan with your primary care doctor. Ask if you can have medicine to take at home the next time you get a bad headache. Poorly controlled chronic headaches may require a referral to a neurologist (headache specialist). Get Prompt Medical Attention if any of the following occur: Your head pain gets worse, or does not improve within 24 hours Repeated vomiting (cant keep liquids down) Sinus or ear or throat pain (not already reported) Fever of 100.4 F (38 C) or higher, or as directed by your healthcare provider Stiff neck Extreme drowsiness, confusion or fainting Dizziness, vertigo (dizziness with spinning sensation) Weakness of an arm or leg or one side of the face Difficulty with speech or vision Ondansetron Oral disintegrating tablet What is this medicine? ONDANSETRON (on ANUSHKA se manju) is used to treat nausea and vomiting caused by chemotherapy. It is also used to prevent or treat nausea and vomiting after surgery. How should I use this medicine? These tablets are made to dissolve in the mouth. Do not try to push the tablet through the foil backing. With dry hands, peel away the foil backing and gently remove the tablet. Place the tablet in the mouth and allow it to dissolve, then swallow. While you may take these tablets with water, it is not necessary to do so. Talk to your advanced manufacturing associate regarding the use of this medicine in children. Special care may be needed. What side effects may I notice from receiving this medicine? Side effects that you should report to your doctor or health healthcare management consultant as soon as possible: allergic reactions like skin rash, itching or hives, swelling of the face, lips, or tongue breathing problems dizziness fast or irregular heartbeat feeling faint or lightheaded, falls fever and chills swelling of the hands and feet tightness in the chest Side effects that usually do not require medical attention (report to your doctor or health healthcare management consultant if they continue or are bothersome): constipation or diarrhea headache What may interact with this medicine? Do not take this medicine with any of the following medications: -apomorphine -cisapride -dofetilide -dronedarone -pimozide -thioridazine -ziprasidone This medicine may also interact with the following medications: -carbamazepine -phenytoin -rifampicin -tramadol -other medicines that prolong the QT interval (cause an abnormal heart rhythm) What if I miss a dose? If you miss a dose, take it as soon as you can. If it is almost time for your next dose, take only that dose. Do not take double or extra doses. Where should I keep my medicine? Keep out of the reach of children. Store between 2 and 30 degrees C (36 and 86 degrees F). Throw away any unused medicine after the expiration date. What should I tell my health care provider before I take this medicine? They need to know if you have any of these conditions: heart disease history of irregular heartbeat liver disease low levels of magnesium or potassium in the blood an unusual or allergic reaction to ondansetron, granisetron, other medicines, foods, dyes, or preservatives or trying to get breast-feeding What should I watch for while using this medicine? Check with your doctor or health healthcare management consultant as soon as you can if you have any sign of an allergic reaction. You have been given the following additional information: Headache, Migraine (Classical) Ondansetron Oral disintegrating tablet (Electronically signed by Elva King A.R.N.P. 10/25/2016 18:20)
--- NOTE | 2016-10-25 18:20 | ED MED RECONCILIATION SUMMARY ---
Patient: ALE REDMOND Medication Reconciliation Report [facility] VisitID: [id number] [address] [place] [address] 41y, F Registration Date/Time: 10/25/2016 Weight: 75.7 kg Height/Length: 60 in. BMI: 32.6 ALLERGIES: Gabapentin, Vicodin The patient's Home Medications are listed below: THE FOLLOWING MEDICATIONS NEED TO BE RECONCILED: Amitriptyline HCl Oral 25 mg, at bedtime Citalopram Hydrobromide Oral (20 mg) 1 tablet, daily Ibuprofen Oral 800 mg Naratriptan HCl Oral (2.5 mg) 1 tablet Omeprazole Oral 20 mg, daily Xanax Oral 0.25 mg, last dose: ago , for anxiety Zofran Oral The source(s) of the original Home Medication information: patient The following Medications were given to the patient in the Emergency Department: Toradol [IM] IM 60 mg, administered: 10/25/2016 5:33:00 PM Benadryl [IM] IM 50 mg, administered: 10/25/2016 5:33:00 PM Reglan [IM] IM 10 mg, administered: 10/25/2016 5:33:00 PM The following Medications were prescribed to the patient: Zofran 4 mg: Take 1 orally every six hours as needed for nausea/vomiting. Dispense ten (10). No refills. Substitution is permissible. -- Elva iKng A.R.N.P.
--- NOTE | 2016-10-25 18:20 | ED MAR SUMMARY ---
..... Medication Administration Record [facility] [address] [place] [address] Patient: ALE REDMOND Visit ID: [id number] 41y, F Weight: 75.7 kg Height/Length: 60 in BMI: 32.6 ALLERGIES: Gabapentin, Vicodin Given 17:10/25/2016 Dimas Jackson RElia Medication Administered: TORADOL [IM] (KETOROLAC TROMETHAMINE), Dose: 60 mg IM. Medication Ordered: Toradol IM 60 mg (NOW). Given 17:10/25/2016 Diams Jackson R.NJose Ramon Medication Administered: BENADRYL [IM] (DIPHENHYDRAMINE HCL), Dose: 50 mg IM. Medication Ordered: Benadryl IM 50 mg (NOW). Given 17:10/25/2016 Dimas Jackson RJose RamonNJose Ramon Medication Administered: REGLAN [IM] (METOCLOPRAMIDE HCL), Dose: 10 mg IM. Medication Ordered: - (Reglan 10mg im stat lease).
--- NOTE | 2016-10-25 18:20 | ED MED RECONCILIATION SUMMARY ---
Patient: ALE REDMOND Medication Reconciliation Report [facility] VisitID: [id number] [address] [place] [address] 41y, F Registration Date/Time: 10/25/2016 Weight: 75.7 kg Height/Length: 60 in. BMI: 32.6 ALLERGIES: Gabapentin, Vicodin The patient's Home Medications are listed below: THE FOLLOWING MEDICATIONS NEED TO BE RECONCILED: Amitriptyline HCl Oral 25 mg, at bedtime Citalopram Hydrobromide Oral (20 mg) 1 tablet, daily Ibuprofen Oral 800 mg Naratriptan HCl Oral (2.5 mg) 1 tablet Omeprazole Oral 20 mg, daily Xanax Oral 0.25 mg, last dose: ago , for anxiety Zofran Oral The source(s) of the original Home Medication information: patient The following Medications were given to the patient in the Emergency Department: Toradol [IM] IM 60 mg, administered: 10/25/2016 5:33:00 PM Benadryl [IM] IM 50 mg, administered: 10/25/2016 5:33:00 PM Reglan [IM] IM 10 mg, administered: 10/25/2016 5:33:00 PM The following Medications were prescribed to the patient: Zofran 4 mg: Take 1 orally every six hours as needed for nausea/vomiting. Dispense ten (10). No refills. Substitution is permissible. -- Elva King A.R.N.P.
== END 2016-10-25 17:38 | disposition home or self-care (01) ==
LOC: ED SRH 16:05
DX: G43.019 Migraine without aura, intractable, without status migrainosus (principal); Z79.899 Other long term (current) drug therapy; Z88.5 Allergy status to narcotic agent; Z88.8 Allergy status to other drugs, medicaments and biological substances